=== PATIENT | male | born 1980 | race Caucasian/White ===

== ENCOUNTER 2019-10-25 17:33 | Observation (INO) ==
[2019-10-25] MEDS ORDERED: ASPIRIN 325 MG TABLET PO STA (17:45)
[2019-10-25] MEDS ORDERED: LORazepam 2 MG/1 ML VIAL IV STA ×2 (17:45→19:08)
[2019-10-25] MEDS ORDERED: SODIUM CHLORIDE 0.9% 1,000 ML IV STA (17:45)
[2019-10-25 18:15] LABS: Basophils % 0.1 % (0.0-0.8); Eosinophils % 0.1 % (0.00-10.9); Hematocrit 45.8 VOL% (42.0-52.0); Hemoglobin 15.1 GM/DL (14.0-18.0); Immature Granulocytes % 0.3 %; Immature Granulocytes Absolute 0.05 #; Lymphocytes # 1.6 10*3/uL (1.4-4.0); Lymphocytes % 10.3 % (21.2-54.2); Mean Corpuscular Volume 88.1 FL (87-102); Mean Platelet Volume 9.7 FL (9.6-12.0); Monocytes % 8.7 % (1.7-12.7); Neutrophils % 80.5 % (38.7-73.9); Platelet Count 340 T/CUMM (130-400); Red Cell Distribution Width 13.1 % (9.3-17.3); White Blood Count 15.2 T/CUMM (4-12)
[2019-10-25 18:24] LABS: PT Patient Result 10.8 SECS (9.6-12.2)
[2019-10-25 18:41] LABS: Alanine Aminotransferase 47 U/L (16-61); Albumin 4.6 G/DL (3.4-5.0); Alkaline Phosphatase 86 U/L (45-117); Aspartate Amino Transferase 30 U/L (0-37); Blood Urea Nitrogen 10 MG/DL (7-18); Calcium 9.2 MG/DL (8.5-10.1); Estimated Glom Filtration Rate 121 ML/MIN; Glucose 99 MG/DL (74-106); Osmolality,Calculated 277.4 MOS/KG (273-304); Total Protein 8.2 G/DL (6.4-8.3)
[2019-10-25 18:44] LABS: Troponin I 0.318 NG/ML (0.00-0.045)
[2019-10-25] MEDS ORDERED: ENOXAPARIN 100 MG/ML SYRINGE SUBCUT ONE (18:57)
[2019-10-25] MEDS ORDERED: LORazepam 2 MG/1 ML VIAL ONE (19:00)
[2019-10-26] MEDS: LORazepam 2 MG/1 ML VIAL IV PRN ×4 (00:01→22:32)
[2019-10-26] MEDS: SODIUM CHLORIDE 0.9% 1,000 ML IV SCH ×5 (00:08→22:35)
[2019-10-26 00:34] LABS: Barbiturates Screen,Urine Negative (Negative); Benzodiazepines Screen,Urine Negative (Negative); Cannabinoid Screen,Urine Negative (Negative); Opiate Screen,Urine Negative (Negative); Phencyclidine Screen,Urine Negative (Negative)
[2019-10-26 07:09] LABS: Basophils % 0.4 % (0.0-0.8); Eosinophils % 0.2 % (0.00-10.9); Hematocrit 43.2 VOL% (42.0-52.0); Hemoglobin 14.2 GM/DL (14.0-18.0); Immature Granulocytes % 0.3 %; Immature Granulocytes Absolute 0.03 #; Lymphocytes # 2.9 10*3/uL (1.4-4.0); Mean Corpuscular HGB Conc 32.9 GM/DL (32-36); Mean Corpuscular Volume 88.7 FL (87-102); Mean Platelet Volume 9.7 FL (9.6-12.0); Monocytes % 11.1 % (1.7-12.7); Platelet Count 297 T/CUMM (130-400); Red Blood Count 4.87 MC/CUMM (3.8-5.5); Red Cell Distribution Width 13.1 % (9.3-17.3); White Blood Count 9.7 T/CUMM (4-12)
[2019-10-26 07:34] LABS: Calcium 8.6 MG/DL (8.5-10.1); Osmolality,Calculated 272.8 MOS/KG (273-304)
[2019-10-26] MEDS: POTASSIUM CHLORIDE 20 MEQ TABLET PO SCH ×2 (09:22→22:30)
[2019-10-26] MEDS: METOPROLOL SUCCINATE XL 25 MG TABLET PO SCH ×2 (09:22→22:30)
[2019-10-26] MEDS: ASPIRIN EC 81 MG TABLET PO SCH (10:58)
[2019-10-27] MEDS ORDERED: HALOPERIDOL 5 MG/ML AMP IM ONE (04:50)
[2019-10-27] MEDS: SODIUM CHLORIDE 0.9% 1,000 ML IV SCH ×2 (04:53→12:43)
[2019-10-27] MEDS ORDERED: LORazepam 2 MG/1 ML VIAL IM PRN (04:54)
[2019-10-27 05:08] LABS: Basophils % 0.5 % (0.0-0.8); Eosinophils # 0.1 10*3/uL (0.0-0.87); Eosinophils % 0.6 % (0.00-10.9); Hematocrit 44.8 VOL% (42.0-52.0); Hemoglobin 14.5 GM/DL (14.0-18.0); Immature Granulocytes % 0.2 %; Immature Granulocytes Absolute 0.02 #; Lymphocytes # 3.2 10*3/uL (1.4-4.0); Mean Corpuscular HGB Conc 32.4 GM/DL (32-36); Mean Corpuscular Volume 88.9 FL (87-102); Mean Platelet Volume 10.1 FL (9.6-12.0); Monocytes % 10.8 % (1.7-12.7); Neutrophils % 49.9 % (38.7-73.9); Platelet Count 327 T/CUMM (130-400); Red Blood Count 5.04 MC/CUMM (3.8-5.5); Red Cell Distribution Width 12.7 % (9.3-17.3); White Blood Count 8.3 T/CUMM (4-12)
[2019-10-27] MEDS: LORazepam 2 MG/1 ML VIAL IV PRN ×2 (05:21→09:28)
[2019-10-27 05:43] LABS: Risk Ratio 3.46; VLDL CHOLESTEROL 23.2 MG/DL
[2019-10-27 05:47] LABS: Osmolality,Calculated 272.8 MOS/KG (273-304)
[2019-10-27] MEDS: POTASSIUM CHLORIDE 20 MEQ TABLET PO SCH (09:28)
[2019-10-27] MEDS: ASPIRIN EC 81 MG TABLET PO SCH (09:28)
[2019-10-27] MEDS: METOPROLOL SUCCINATE XL 25 MG TABLET PO SCH (09:28)
[2019-10-27 13:04] VITALS: BP 168/102
[2019-10-27 13:16] LABS: CKMB % 0.2 %
[2019-10-27 13:18] LABS: Troponin I 0.063 NG/ML (0.00-0.045)
[2019-10-27] MEDS ORDERED: METOPROLOL SUCCINATE XL 25 MG TABLET PO ONE (15:00)
[2019-10-27] MEDS ORDERED: METOPROLOL SUCCINATE XL 50 MG TABLET PO SCH (21:00)
== END 2019-10-27 14:23 ==
LOC: N.ED 17:33 → N.EDINP 17:33 → N.TELEN 20:17
PROVIDERS: ADMIT Internal Medicine; ATTEND Internal Medicine